=== PATIENT | male | born 1970 | race Caucasian/White ===

== ENCOUNTER 2021-10-09 23:17 | Observation (INO) ==
[2021-10-09 23:37] LABS: Basophils # 0.1 K/mcL (0.0-0.2); Basophils % 0.6 %; Eosinophils # 0.1 K/mcL (0.0-0.6); Eosinophils % 0.9 %; Hemoglobin 15.7 g/dL (12.9-16.9); Immature Granulocytes % 0.3 % (0-4); Lymphocytes # 4.2 K/mcL (0.6-4.6); Lymphocytes % 32.9 %; Mean Corpuscular HGB Conc 33.4 g/dL (31.6-35.5); Mean Corpuscular Hemoglobin 30.1 pg (28.0-33.3); Mean Platelet Volume 9.3 fL (9.4-12.4); Monocytes # 0.6 K/mcL (0.0-1.3); Neutrophils # 7.6 K/mcL (1.6-8.9); Platelet Count 357 K/mcL (140-400); Red Blood Count 5.22 M/mcL (4.19-5.50); Red Cell Distribution Width 13.1 % (11.5-14.5); Segmented Neutrophils % 60.3 %; White Blood Count 12.7 K/mcL (4.3-11.1)
[2021-10-09 23:55] LABS: BUN/Creatinine Ratio 15 (6-26); Blood Urea Nitrogen 20 mg/dL (6-20); Calcium 8.9 mg/dL (8.6-10.3); Carbon Dioxide 27 mEq/L (23-29); Chloride 100 mEq/L (98-107); Glucose 102 mg/dL (70-105); Osmolality,Calculated 281 (280-300); Potassium 3.8 mEq/L (3.5-5.1); Sodium 134 mEq/L (136-145); eGFR For African Americans > 60 (> 60); eGFR For Non-African Americans 57 (> 60)
[2021-10-10] MEDS ORDERED: Aspirin 325 MG TABLET PO ONE (00:20)
[2021-10-10] MEDS ORDERED: Acetaminophen 325 MG TABLET PO PRN (02:42)
[2021-10-10] MEDS ORDERED: Melatonin 3 MG TABLET PO PRN (02:42)
[2021-10-10] MEDS ORDERED: Naloxone 0.4 MG/ML INJ IVP PRN (02:42)
[2021-10-10] MEDS ORDERED: Ondansetron 4 MG/2 ML VIAL IVP PRN (02:42)
[2021-10-10] MEDS ORDERED: Isovue-370 500 ML BOTTLE IVP ONE (03:20)
[2021-10-10] MEDS ORDERED: Perflutren Lipid Microsphere 1.3 ML in 0.9 % Sodium Chloride 8.7 ML IVP PRN (04:45)
[2021-10-10 05:04] LABS: Basophils # 0.1 K/mcL (0.0-0.2); Basophils % 0.7 %; Eosinophils # 0.2 K/mcL (0.0-0.6); Eosinophils % 1.9 %; Hematocrit 43.3 % (37.5-50.1); Hemoglobin 14.6 g/dL (12.9-16.9); Immature Granulocytes % 0.2 % (0-4); Lymphocytes # 3.1 K/mcL (0.6-4.6); Lymphocytes % 31.9 %; Mean Corpuscular HGB Conc 33.7 g/dL (31.6-35.5); Mean Corpuscular Volume 88.9 fL (83.0-100.0); Mean Platelet Volume 9.6 fL (9.4-12.4); Monocytes # 0.5 K/mcL (0.0-1.3); Monocytes % 5.2 %; Neutrophils # 5.8 K/mcL (1.6-8.9); Platelet Count 299 K/mcL (140-400); Red Blood Count 4.87 M/mcL (4.19-5.50); Red Cell Distribution Width 13.1 % (11.5-14.5); Segmented Neutrophils % 60.1 %; White Blood Count 9.7 K/mcL (4.3-11.1)
[2021-10-10 05:12] LABS: INR 1.1; Prothrombin Time 12.3 Seconds (9.4-12.1)
[2021-10-10 05:34] LABS: Alanine Aminotransferase 6 Units/L (7-52); Albumin 3.7 g/dL (3.5-5.7); Albumin/Globulin Ratio 1.2 (1.1-2.2); Alkaline Phosphatase 36 Units/L (34-104); Aspartate Amino Transferase 10 Units/L (13-39); BUN/Creatinine Ratio 21 (6-26); Bilirubin,Total 0.6 mg/dL (0.3-1.0); Blood Urea Nitrogen 20 mg/dL (6-20); Calcium 8.6 mg/dL (8.6-10.3); Carbon Dioxide 22 mEq/L (23-29); Chloride 103 mEq/L (98-107); Chol/HDL Ratio 3.3 (0-4.9); Cholesterol 126 mg/dL (< 200); Globulin 3.2 g/dL (2.4-3.5); Glucose 96 mg/dL (70-105); HDL Cholesterol 38 mg/dL (40-59); LDL Cholesterol,Calculated 68 mg/dL (< 100); Magnesium 2.1 mg/dL (1.6-2.6); Osmolality,Calculated 280 (280-300); Phosphorous 3.1 mg/dL (2.7-4.5); Potassium 3.5 mEq/L (3.5-5.1); Sodium 134 mEq/L (136-145); Total Protein 6.9 g/dL (6.4-8.9); Triglycerides 99 mg/dL (< 150); Troponin I < 0.03 ng/mL (< 0.04); eGFR For African Americans > 60 (> 60); eGFR For Non-African Americans > 60 (> 60)
[2021-10-10] MEDS ORDERED: *HR* Heparin 5,000 UNIT/ML VIAL SQ SCH (06:00)
[2021-10-10 10:13] LABS: Estimated Average Glucose 105 mg/dl; Hemoglobin A1C 5.3 %
[2021-10-10 10:21] LABS: Magnesium 2.2 mg/dL (1.6-2.6)
[2021-10-10 11:16] LABS: Folate 12.6 ng/mL (3.0-16.0)
[2021-10-10 14:28] VITALS: BP 151/107; PULSE 84; TEMP 98.1; O2SAT 97
== END 2021-10-10 16:41 | disposition home or self-care (01) ==
LOC: EMEROOARM 23:17 → 3BNU 23:17 → SUATTDRO 10-10 01:29 → 3BNU 10-10 02:26
PROVIDERS: ADMIT Internal Medicine; ATTEND Registered Nurse